=== PATIENT | female | born 1995 | race Hispanic/Latino ===

== ENCOUNTER 2019-06-06 18:21 | Emergency (ER) | payer OTHER ==
[~2019-06-06] VITALS: Ht 162.6 cm; Wt 57.4 kg
[2019-06-06 18:22] VITALS: BP 117/64
== END 2019-06-06 21:27 | disposition home or self-care (01) ==
LOC: M ED 18:21
DX: N93.9 Abnormal uterine and vaginal bleeding, unspecified (principal); R10.2 Pelvic and perineal pain

== ENCOUNTER 2019-07-07 10:49 | Emergency (ER) | payer OTHER ==
[~2019-07-07] VITALS: Ht 160 cm; Wt 56.5 kg
--- NOTE | 2019-07-07 12:10 | REP ---
REASON: Trauma. PRIORS: None. FINDINGS: Three views of the right shoulder were performed. The acromioclavicular and glenohumeral relationships are within normal limits. There is no acute fracture or destructive osseous lesions. Electronically Signed by Salvatore Leon DO 07/07/2019 12:17 P
[2019-07-07 13:57] VITALS: BP 116/71
== END 2019-07-07 14:01 | disposition home or self-care (01) ==
LOC: M ED 10:49
DX: S40.011A Contusion of right shoulder, initial encounter (principal); S43.401A Unspecified sprain of right shoulder joint, initial encounter; S46.011A Strain of muscle(s) and tendon(s) of the rotator cuff of right shoulder, initial encounter; W01.198A Fall on same level from slipping, tripping and stumbling with subsequent striking against other object, initial encounter; Y92.099 Unspecified place in other non-institutional residence as the place of occurrence of the external cause; Y93.9 Activity, unspecified; Y99.9 Unspecified external cause status